=== PATIENT | male | born 1950 | race Caucasian/White ===

== ENCOUNTER → 2016-04-11 | Outpatient (REF) | LOC: ZLAB.WCH 15:03 | DX: Z01.89 Encounter for other specified special examinations (principal) ==

== ENCOUNTER → 2016-07-06 | Outpatient (REF) | LOC: ZLAB.WCH 14:52 | DX: Z01.89 Encounter for other specified special examinations (principal) ==

== ENCOUNTER → 2017-07-04 | Outpatient (REF) | LOC: ZLAB.WCH 08:30 | DX: Z01.89 Encounter for other specified special examinations (principal) ==

== ENCOUNTER → 2017-12-22 | Outpatient (REF) | LOC: ZLAB.WCH 16:01 | DX: Z01.89 Encounter for other specified special examinations (principal) | CPT/HCPCS: G0103 ==

== ENCOUNTER → 2018-03-09 | Outpatient (REF) | LOC: ZLAB.WCH 16:28 | DX: Z01.89 Encounter for other specified special examinations (principal) ==

== ENCOUNTER → 2018-06-18 | Outpatient (REF) | LOC: ZLAB.WCH 16:02 | DX: Z01.89 Encounter for other specified special examinations (principal) ==

== ENCOUNTER 2019-04-02 12:10 | Day surgery (SDC) | payer MEDICARE, BC ==
[~2019-04-02] VITALS: Ht 188 cm; Wt 87.3 kg
[2019-04-02 13:06] VITALS: BP 157/68; PULSE 63; TEMP 98.3
[2019-04-02] MEDS ORDERED: ZESTRIL 20MG TA20 MG PO (13:10)
[2019-04-02] MEDS ORDERED: HYDRODIURIL50 MG PO (13:10)
[2019-04-02] MEDS ORDERED: ASPIRIN 81M81 MG/TA2 PO (13:11)
[2019-04-02] MEDS ORDERED: VOLTAREN GEL 1%1 TU TP (13:11)
[2019-04-02] MEDS ORDERED: HUMALOG100 U/ML SQ (13:14)
[2019-04-02 16:05] VITALS: BP 142/65; PULSE 60; TEMP 97.1
--- NOTE | 2019-04-02 16:05 | NUR ---
Patient [place] [facility], denies nausea, complains of pain accross lower abdomen. Patient monitor applied, vitals stable. Incisions across abdomen x3 are clean/dry/intact without any dressings covering them. Patient rates pain 5/10, patient educated the need to eat some food first and then PRN pain medication can be administered. Patient's spouse brought to bedside. Patient given muffin, coffee and water.
[2019-04-02 16:20] VITALS: BP 145/69; PULSE 61
--- NOTE | 2019-04-02 16:30 | NUR ---
Patient tolerated muffin and coffee without any nausea. Patient still rates abdominal pain 5/10. Patient given PRN pain medication.
[2019-04-02 16:35] VITALS: BP 150/70; PULSE 64
--- NOTE | 2019-04-02 16:35 | NUR ---
Patient's spouse leaves at this time to go get patient's prescription filled. Patient reports he wants to rest for a little bit. Patient given another muffin and more coffee.
[2019-04-02] MEDS ORDERED: ULTRAM 50MG TAB50 MG PO (16:49)
[2019-04-02 16:50] VITALS: BP 144/71; PULSE 59
--- NOTE | 2019-04-02 17:00 | NUR ---
Patient resting comfortably on cart at this time. Vitals stable.
[2019-04-02 17:07] VITALS: BP 145/65; PULSE 57; TEMP 97.2
--- NOTE | 2019-04-02 17:20 | NUR ---
Patient waking up and feeling better at this time. Reports pain is much better/more tolerable. States that he still feels sore in abdomen. Vitals stable. Patient sitting up. Denies nausea. Given another cup of coffee.
--- NOTE | 2019-04-02 17:40 | NUR ---
Patient's spouse back at this time. Patient is getting dressed. Incisions x3 clean/dry/intact without any drainage noted.
--- NOTE | 2019-04-02 17:55 | NUR ---
Dismissal instructions gone over with patient and patient's spouse. Both verbalize understanding and all questions answered.
--- NOTE | 2019-04-02 18:00 | NUR ---
Patient discharged to private vehicle his spouse is driving via wheelchair to visitor enterance without any complications. Patient and spouse leave thanking staff for services.
== END 2019-04-02 18:00 | disposition home or self-care (01) ==
LOC: SDCO 12:10
DX: K40.90 Unilateral inguinal hernia, without obstruction or gangrene, not specified as recurrent (principal); E10.9 Type 1 diabetes mellitus without complications; I10 Essential (primary) hypertension; M19.049 Primary osteoarthritis, unspecified hand; Z96.41 Presence of insulin pump (external) (internal); Z79.4 Long term (current) use of insulin; Z79.82 Long term (current) use of aspirin; Z98.52 Vasectomy status; Z80.9 Family history of malignant neoplasm, unspecified; Z83.3 Family history of diabetes mellitus
CPT/HCPCS: C1781; J2704; J3010; J7030